=== PATIENT | female | born 1995 | race Two or more races ===

== ENCOUNTER 2017-02-21 11:18 | Emergency (ER) | payer SELFPAY ==
--- NOTE | ~2017-02-21 | ER ---
PATIENT'S NAME: YOSELYN ZUNIGA [facility] AGE: 21 Y [address] ROOM: [place] [address] LOCATION: [facility] ADMIT DATE: 02/21/2017 ER/Outpatient Report DISCHARGE DATE: 02/21/2017 FAMILY PHYSICIAN: PHYSICIAN, NO ATTENDING PHYSICIAN: Marilyn Mathews Time of Arrival: 1118 hours. Time of Evaluation: 1145 hours. IDENTIFICATION: A 21-year-old female. CHIEF COMPLAINT: Abdominal mass. HISTORY OF PRESENT ILLNESS: The patient is a 21-year-old female, who was referred from [facility] for an abdominal mass. The patient states she underwent removal of an ovarian cyst in October per Dr. Tate, and indeed, she had a 17 cm ovarian mass with ovarian torsion, status post exploratory laparotomy and right salpingo- oophorectomy per Dr. Tate, October 08, 2016. 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 She has developed an enlarging lump in her left lower abdomen since that surgery. She said it started out small, but it has been getting bigger. She has no pain at rest, but painful when upright, and she was seen at [facility] and referred here. She has had no nausea or vomiting. No diarrhea or constipation. No blood in her stools. No dark, tarry, or black stools. She rates her pain 4/10 or 5/10 on the pain scale. ALLERGIES: NO KNOWN DRUG ALLERGIES. CURRENT MEDICATIONS: None. PAST MEDICAL HISTORY: Hydatid cyst. PAST SURGICAL HISTORY: Right ovary resected. No other surgeries. 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 Tobacco use, a few cigarettes per day. Alcohol use, denies. Drug use, denies. FAMILY HISTORY: PATIENT'S NAME: YOSELYN ZUNIGA [facility] AGE: 21 Y [address] ROOM: [place] [address] LOCATION: [facility] ADMIT DATE: 02/21/2017 ER/Outpatient Report DISCHARGE DATE: 02/21/2017 FAMILY PHYSICIAN: PHYSICIAN, BELEM ATTENDING PHYSICIAN: Marilyn Mathews No pertinent family history. REVIEW OF SYSTEMS: All systems reviewed and negative other than what is noted in the HPI. Last menstrual period was January 05, 2017, she is sexually active. PHYSICAL EXAMINATION: VITAL SIGNS: Height 5 feet 6 inches, weight 130.2 kg, height 5 feet 4 inches, blood pressure 142/86, pulse 104, respirations 16, temp 98.4, sats 95% on room air. GENERAL: A 21-year-old female, in mild distress. HEENT: Head: Normocephalic, atraumatic. Eyes: Pupils are equal and reactive to light and accommodation. Extraocular movements are intact. Nose: Mucosa pink. No lesions. Mouth: No lesions. Pharynx benign. NECK: Supple. No lymphadenopathy. LUNGS: Clear to auscultation. HEART: Regular rate and rhythm. No murmur, rub, or gallop. ABDOMEN: Bowel sounds present. Obese, soft, nondistended. Tender to palpation in the left lower abdomen, just below the umbilicus. She does have an abdominal ventral hernia that is easily reducible in the supine position. Minimally tender to palpation. No rebound or guarding. No CVA tenderness. LABORATORY DATA AND X-RAY: CT scan with IV and oral contrast, large midline anterior pelvic wall defect into which abdominal fat extends. This is a new finding since prior imaging. Interval removal of previously seen ovarian mass, surgically absent gallbladder. UA is negative. Chemistry panel, CBC, amylase, and lipase are unremarkable other than a white count of 12.8. IMPRESSION: Large anterior pelvic wall hernia. PLAN: No heavy lifting. Tylenol for pain. Diet as tolerated. Dr. Chou was here for General Surgery for another patient, so did evaluate her and agreed with plan of care. The patient understands and agrees, and all questions have been answered. MARILYN MATHEWS MD CAR/modl PATIENT'S NAME: YOSELYN ZUNIGA [facility] AGE: 21 Y [address] ROOM: [place], [place] [address] LOCATION: [facility] ADMIT DATE: 02/21/2017 ER/Outpatient Report DISCHARGE DATE: 02/21/2017 FAMILY PHYSICIAN: PHYSICIAN, NO ATTENDING PHYSICIAN: Marilyn Mathews /[id number] d: 02/22/17 0002 t: 03/01/17 1926, OUTPATIENT REPORT
[~2017-02-21 11:18] MED LIST: IBUPROFEN800 MG PO; PERCOCET 5-3251 EACH PO
[2017-02-21 12:10] LABS: BASOPHIL % 0.2 %; EOSINOPHIL # 0.2 K/uL (0.0-0.5); EOSINOPHIL % 1.7 %; HEMOGLOBIN 14.4 g/dL (11.0-15.0); IMMATURE GRANULOCYTE % 0.2 %; LYMPHOCYTE % 23.7 %; MCHC 32.7 gm/dL (32.0-36.5); MCV 82.4 fl (83.0-98.0); MONOCYTE # 0.3 K/uL (0.0-1.0); MONOCYTE % 2.2 %; NEUTROPHIL # (ANC) 9.2 K/uL (1.8-7.8); NRBC % 0 /100WBC (0-0.00); PLATELET COUNT 354 K/uL (150-450); RBC 5.34 M/uL (3.50-5.00); RDW-CV 13.2 % (11.9-14.6); WBC 12.8 K/uL (4.0-11.0)
[2017-02-21 12:17] LABS: BILIRUBIN URINE NEGATIVE (NEGATIVE); BLOOD URINE 25 /UL (NEGATIVE); GLUCOSE URINE NEGATIVE (NEGATIVE); KETONE URINE NEGATIVE (NEGATIVE); LEUKOCYTES URINE 25 /UL (NEGATIVE); NITRITE URINE NEGATIVE (NEGATIVE); PROTEIN URINE NEGATIVE (NEGATIVE); UROBILINOGEN URINE NORMAL (NORMAL)
[2017-02-21 12:18] LABS: COLOR URINE YELLOW (YELLOW)
[2017-02-21 12:19] LABS: TURBIDITY URINE 1+ (CLEAR)
[2017-02-21 12:28] LABS: ALBUMIN 3.5 gm/dL (3.5-5.0); ALK PHOS 114 IU/L (33-138); ALT 28 IU/L (12-78); ANION GAP 14.1 (10.0-19.0); AST 15 IU/L (10-40); BLOOD UREA NITROGEN 11 mg/dL (6-24); CALCIUM 8.5 mg/dL (8.5-10.5); CHLORIDE 109 mMol/L (96-110); CO2 22 mMol/L (22-32); CREATININE 0.5 mg/dL (0.5-1.1); ESTIMATED GFR (MDRD EQUATION) > 60; POTASSIUM 4.1 mMol/L (3.7-5.1); SODIUM 141 mMol/L (135-145); TOTAL BILIRUBIN 0.1 mg/dL (0.0-1.5); TOTAL PROTEIN 7.8 g/dL (6.0-8.4)
[2017-02-21 12:29] LABS: WBC URINE 0-2 #/HPF (NEGATIVE)
[2017-02-21 12:30] LABS: BACTERIA URINE FEW (NEGATIVE); RBC URINE NEGATIVE #/HPF (NEGATIVE)
[2017-02-21 12:31] LABS: AMORPHOUS URINE 1+ (NEGATIVE)
== END 2017-02-21 16:42 | disposition disaster alternative care site (69) ==
LOC: GMED 11:18
PROVIDERS: Family Medicine
DX: K43.9 Ventral hernia without obstruction or gangrene (principal); F17.210 Nicotine dependence, cigarettes, uncomplicated; E66.9 Obesity, unspecified; Z90.721 Acquired absence of ovaries, unilateral; Z71.6 Tobacco abuse counseling
CPT/HCPCS: J2405; Q9967

== ENCOUNTER 2017-03-13 06:16 | Observation (INO) | payer SELFPAY ==
[~2017-03-13] VITALS: Ht 162.6 cm; Wt 128.9 kg
--- NOTE | ~2017-03-13 | DS ---
PATIENT'S NAME: YOSELYN ZUNIGA [facility] AGE: 21 Y [address] ROOM: [place] [address] LOCATION: [facility] [place] ADMIT DATE: 03/13/2017 Discharge Summary DISCHARGE DATE: 03/15/2017 FAMILY PHYSICIAN: PHYSICIAN, NO ATTENDING PHYSICIAN: Nick Barnett FINAL DIAGNOSES: 1. Large abdominal wall incisional hernia. 2. Obesity. PROCEDURE: Incisional herniorrhaphy with Ventralex ST hernia patch. HOSPITAL COURSE: The patient is a 21-year-old young lady, who is morbidly obese and is 5 month status post a Pfannenstiel incision in the lower abdomen for a right oophorectomy secondary to a hydatidiform cyst. The patient also has had a previous laparoscopic cholecystectomy. She presented to the emergency room several weeks back with abdominal complaints. CT showed a large infraumbilical/periumbilical incisional hernia. It was felt secondary to her trocar incision of her previous gallbladder operation as opposed to the Pfannenstiel incision. The patient was admitted to the hospital and underwent the above described incisional herniorrhaphy. It took 2 days to get comfortable with her pain and control her pain with p.o. narcotics. She was slow to mobilize, but once she accomplished walking in the halls. She had return of bowel function. Diet was advanced to regular diet. She was afebrile and felt ready for discharge in the morning of postop day #2. She will be sent home with Mamou 1 to 2 every 4 hours p.r.n. pain, quantity of 40. She will follow up with Dr. Barnett in 10 days. Given lifting restrictions for 6 weeks of less than 20 pounds. Discharged in stable condition. NICK BARNETT MD WTS/modl /[id number] d: 03/15/17 1716 t: 03/20/17 1747, DISCHARGE SUMMARY
--- NOTE | ~2017-03-13 | OR ---
PATIENT'S NAME: YOSELYN ZUNIGA [facility] AGE: 21 Y [address] ROOM: [place] [address] LOCATION: [facility] [place] ADMIT DATE: 03/13/2017 OR/Procedure Report DISCHARGE DATE: FAMILY PHYSICIAN: PHYSICIAN, NO ATTENDING PHYSICIAN: Nick Barnett SURGEON: Nick Barnett MD BINDERY HELPER: Ailin Bhakta PA-C. DATE OF PROCEDURE: 03/13/2017 PREOPERATIVE DIAGNOSIS: Infraumbilical anterior abdominal wall incisional hernia. POSTOPERATIVE DIAGNOSIS: Infraumbilical anterior abdominal wall incisional hernia. PROCEDURE: Incisional herniorrhaphy with Ventralex ST mesh, 13.8 x 17.8 cm oval. ANESTHESIA: General with 40 mL 0.5% Marcaine. SPECIMEN: Hernia sac, not sent. INDICATION: The patient is a 21-year-old young lady with morbid obesity, who has had a previous laparoscopic cholecystectomy and five months ago underwent a Pfannenstiel incision with excision of a right ovary secondary to hydatid cyst. The patient then has noticed increased asymmetry to her infraumbilical abdominal wall region. A CT performed during emergency room visit did confirm a large defect containing omentum. It was felt to be from her trocar incision of gallbladder rather than wound dehiscence of her Pfannenstiel incision. DESCRIPTION OF PROCEDURE: After informed consent, the patient was taken to the operating room. After general endotracheal anesthesia, the patient's abdomen was prepped and draped into a sterile field. Time-out was performed. We confirmed the patient planned procedure and administration of preop antibiotics. We made an incision just to the right of the umbilicus down at about 3 to 4 inches. We went through significant adipose tissue into approximately 5 inches, until we encounter the top of the hernia sac. We then circumferentially cleared it around the fascia borders. We opened up the sac and we had to meticulously go around the sac and free up a peritoneal adhesions of omentum to the sac. Once we were able to reduce the omentum, we had a clear the peritoneal surface circumferentially. No bowel attached to the anterior abdominal wall inferiorly. We inspected the fascia defect and chose the 13.[address] composite mesh. We placed into the peritoneal cavity the smooth surface was on top of the omentum. We went circumferentially around with the auto suture Tacker to tack the mesh to the PATIENT'S NAME: YOSELYN ZUNIGA [facility] AGE: 21 Y [address] ROOM: [address] [address] LOCATION: [facility] [place] ADMIT DATE: 03/13/2017 OR/Procedure Report DISCHARGE DATE: FAMILY PHYSICIAN: PHYSICIAN, NO ATTENDING PHYSICIAN: Nick Barnett anterior abdominal wall within. This anchored in place and then we went and performed through and through 0 Prolene sutures through the abdominal wall through the mesh and back through the abdominal wall, three in each quadrant. These were about a cm and half from the fascia edge. We then tacked the attenuated fascia over the mesh and covered up exposure of the mesh from the soft tissue space. We closed the subcutaneous tissue in layers of two and 3-0 Vicryl. The skin closed with subcuticular 4-0 Vicryl. Steri-Strips and sterile dressings applied. The patient tolerated the procedure well and transferred to recovery in stable condition. NICK BARNETT MD WTS/modl /[id number] d: 03/13/17 1241 t: 03/20/17 1744, OPERATIVE SUMMARY
--- NOTE | 2017-03-13 16:44 | NUR ---
Significant Event: Patient to the room at 1110 from PACU. Patient received Tylenol 1 gm IV and Toradol 30 mg IV in OR and Fentanyl 25 mcg IV and Oxycodone 5 mg orally in PACU. Patient rating pain at a 7 upon arrival and received Morphine 2 mg IV at 1130 with partial relief. Up to the bathroom with assist to void. Tolerating clear liquids well, denies nausea. IV fluids dc'd, saline lock to her L) hand. Oxycodone 5 mg given at 1457 for c/o abdominal discomfort. Ice bag on to her abdomen. O2 sats down to the upper 80's on room air when sleeping. O2 at 1 l/nc with sats in the mid 90's. Follow up: Monitor pain. Ambulate this evening.
--- NOTE | 2017-03-14 04:00 | NUR ---
Significant Event:pt is a/o x3, up with sba in hallways, walks w/ mother. iv to l hand is sl. dressing to midline unbilicus has some small shadow drainage marked. pt getting oxycodone 5-10mg q 4, was taking 5mg q2, morphine 2mg given @ 2311. vss, afabrile. plan to discharge home today. Follow up: pain management.
--- NOTE | 2017-03-14 17:24 | NUR ---
Significant Event:Is A/O SL in Lt.hand.Mid abd surgical drsg is D/I.Occ.ice bag on.Has been amb in halls with 1 assist.Pain meds at 0820,1250 & 1730.Voiding ok.No N/V.Prob.home tomorrow. Follow up:
--- NOTE | 2017-03-15 04:56 | NUR ---
Significant Event: PT HYPERTENSIVE, TACHYCARDIC. RECEIVED JONATHON Q4 HOURS FOR C/O PAIN IN ABD/BACK (04/15). UP AD [place] WITH FAMILY ASSIST. ENCOURAGED TO BE MORE INDEPENDENT WITH CARE, AND AMBULATION. EDUCATED PT ON IMPORTANCE OF WATER CONSUMPTION/AMBULATION TO HELP WITH BM'S AND PAIN. FAMILY AT BEDSIDE THROUGHOUT SHIFT. COOPERATIVE WITH CARE. Follow up:
[2017-03-15] MEDS ORDERED: NORCO 5-325 TA1 EACH PO (08:57)
--- NOTE | 2017-03-15 09:47 | NUR ---
Talked with nurse and reviewed chart, pt possibly going home today. Joe comes down to office and requests financial assistance form and assistance with motel room, may stay a few more days to assist her. Gave him financial assistance form and discount card for hotel room. Denies other needs or concerns today.
--- NOTE | 2017-03-15 09:52 | NUR ---
D: ORDERS RECEIVED FOR THE PATIENT TO BE DISCHARGED TO HOME TODAY. I: DISMISSAL INSTRUCTIONS WERE PREPARED AND REVIEWED WITH THE PATIENT AND HER FAMILY VIRTUALLY. THE FOLLOWING INFORMATION WAS DISCUSSED INCLUDING [employer] TEACHING SHEETS PROVIDED: DISCHARGE INSTRUCTIONS CARING FOR YOUR INCISIONS, DISCHARGE INSTRUCTIONS FOR OPEN HERNIA REPAIR, NORCO, PREVENTING DVT, TIPS FOR QUITTING SMOKING, KICKING THE SMOKING HABIT, HEALTH EFFECTS OF SMOKING, AND COPING WITH SMOKING WITHDRAWAL. REVIEWED NEW PRESCRIPTIONS AND THE PATIENT WILL NEED TO GET THEM FILLED AT THE PHARMACY OF HER CHOICE. R: THE PATIENT AND HER FAMILY BOTH VERBALIZED UNDERSTANDING OF THE DISMISSAL EDUCATION AT THE TIME OF TEACHING WITH NO FURTHER QUESTIONS. P: THE ABOVE INFORMATION WAS SHARED WITH THE PRIMARY NURSE AND THE CHARGE NURSE THAT THE DISMISSAL EDUCATION WAS COMPLETED. THE PATIENT IS READY FOR DISCHARGE TO THE FRONT DOOR VIA WHEEL CHAIR BY NURSING STAFF ANYTIME.
--- NOTE | 2017-03-15 11:23 | NUR ---
Significant event: Up to BR and ambulated in [place] with encouragement. Oxycodone at 0812 for pain with some relief. Dressing to abdomen is intact with shadow drainage. IV discontinued prior to dismissal. C/O nausea before pain medicine, ate breakfast and denied nausea. Family at bedside. Dismissed to home with family.
== END 2017-03-15 10:45 | disposition disaster alternative care site (69) ==
LOC: GSDC 06:16 → GMSU 06:16 → GSDC 11:11 → GMSU 11:11 → GSDC 14:00 → GMSU 03-15 10:45
PROVIDERS: ADMIT Surgery
PROC: 0WUF0JZ Supplement Abdominal Wall with Synthetic Substitute, Open Approach (ICD-10-PCS; principal; 2017-03-13)
DX: K43.2 Incisional hernia without obstruction or gangrene (principal); E66.01 Morbid (severe) obesity due to excess calories; Z68.42 Body mass index [BMI] 45.0-49.9, adult; F17.200 Nicotine dependence, unspecified, uncomplicated; Z90.49 Acquired absence of other specified parts of digestive tract; Z90.79 Acquired absence of other genital organ(s); Z98.890 Other specified postprocedural states
CPT/HCPCS: C1781; G0378; J0131; J0690; J1100; J2001; J2250; J2270; J2405; J3010; J7120